=== PATIENT | male | born 1960 | race Caucasian/White ===

== ENCOUNTER 2019-03-25 00:02 | Emergency (ER) | payer SELFPAY ==
[~2019-03-25] VITALS: Ht 172.7 cm; Wt 81.6 kg
[2019-03-25 00:02] VITALS: BP 101/55
--- NOTE | 2019-03-25 00:02 | NUR ---
PT JUANITO BLS. TAKEN TO BED 2
--- NOTE | 2019-03-25 00:02 | NUR ---
TO BED #01 BROUGHT IN BY AMBULANCE FOR ETOH, PATIENT DOESNT ANSWER , IGNORING STAFF.
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
[2019-03-25] MEDS ORDERED: NACL 0.9% 1,000 ML IV ONE (00:50)
[2019-03-25 02:11] LABS: BARBITURATE, URINE NEG. ng/ml (NEG <=200); BENZODIAZEPINE, URINE POS. ng/mL (NEG <=200); CANNABINOID, URINE NEG. ng/mL (NEG <=50); COCAINE, URINE NEG. ng/mL (NEG <=300); OPIATE, URINE NEG. ng/mL (NEG <=2000); PHENCYCLIDINE SCREEN,URINE NEG. ng/mL (NEG <=25)
[2019-03-25] MEDS ORDERED: METO50TA20 PO (05:10)
[2019-03-25] MEDS ORDERED: SLIDE SUBQ (05:13)
[2019-03-25 05:15] VITALS: BP 102/59
--- NOTE | 2019-03-25 05:15 | NUR ---
PT DISCHARGED WITHOUT PAPERWORK. D/C INSTRUCTIONS EXPLAINED. PT VERBALIZED UNDERSTANDING. TOLD PT TO FOLLOW UP WITH PCP. PT AT STABLE CONDITION. ABLE TO AMBULATE WITH SLOW STEADY GAIT. ALL QUESTIONS ANSWERED.
== END 2019-03-25 05:15 | disposition home or self-care (01) ==
LOC: MED 00:02
DX: R53.1 Weakness (principal); F15.90 Other stimulant use, unspecified, uncomplicated; Z79.899 Other long term (current) drug therapy
CPT/HCPCS: 80305; 99283

== ENCOUNTER 2021-06-12 09:46 | Emergency (ER) | payer OTHER, SELFPAY ==
[~2021-06-12] VITALS: Ht 170.2 cm; Wt 82.6 kg
[2021-06-12 09:46] VITALS: BP 130/72
[~2021-06-12 09:46] MED LIST: METO50TA20 PO; SLIDE SUBQ
--- NOTE | 2021-06-12 09:50 | NUR ---
PT BIBA TAKEN TO ER BED 2.
--- NOTE | 2021-06-12 09:59 | NUR ---
60 y/o Male BIBA for c/o alcohol withdrawal. Pt was found sleeping on the floor of an apartment complex parking lot and security called 911 for medical care. Pt is noted with tremors to hands and states he has not had a drink today. BS 90 pre hospital. Pt states 10/10 body pain. PmHx: Alcohol withdrawal, seizures Home meds: None Allergies: PCN
--- NOTE | 2021-06-12 10:52 | NUR ---
DR MADDEN AT BEDSIDE EXAMINING PT
[2021-06-12] MEDS ORDERED: HYDROXYZINE HYDROCHLORIDE 10 MG TAB PO ONE (11:00)
[2021-06-12] MEDS ORDERED: FOLIC ACID 1 MG TAB PO ONE (11:20)
[2021-06-12] MEDS ORDERED: MAGNESIUM OXIDE 400 MG TAB PO ONE (11:20)
[2021-06-12] MEDS ORDERED: MULTIVITAMIN 1 TAB PO STA (11:20)
[2021-06-12 12:17] LABS: BASOPHILS % (AUTO) 0.5 % (0.0-2.0); EOSINOPHILS % (AUTO) 0.2 % (0.0-4.0); HEMATOCRIT 24.2 % (36-52); HEMOGLOBIN 8.2 g/dL (12.0-18.0); LYMPHOCYTES # (AUTO) 0.7 K/uL (2.0-11.5); LYMPHOCYTES % (AUTO) 16.3 % (20.5-51.1); MEAN CORPUSCULAR HEMOGLOBIN 34 pg (27-31); MEAN CORPUSCULAR HGB CONC 34 g/dL (33-37); MEAN CORPUSCULAR VOLUME 99.2 fL (80-94); MONOCYTES # (AUTO) 0.3 K/uL (0.8-1.0); MONOCYTES % (AUTO) 8.1 % (1.7-9.3); NEUTROPHILS # (AUTO) 3.1 K/uL (1.8-7.7); NEUTROPHILS % (AUTO) 74.9 % (42.2-75.2); PLATELET COUNT (AUTO) 62 K/uL (140-450); RED BLOOD CELL COUNT(AUTO) 2.44 MIL/uL (4.20-6.10); RED CELL DISTRIBUTION WIDTH 15.5 % (11.6-13.7); WHITE BLOOD COUNT (AUTO) 4.2 K/uL (4.8-10.8)
[2021-06-12 12:57] LABS: ALBUMIN 3.6 g/dL (3.4-5.0); CARBON DIOXIDE 29.5 mmol/L (21-32); CREATININE 0.4 mg/dL (0.6-1.3); POTASSIUM 3.5 mmol/L (3.5-5.1); TOTAL BILIRUBIN 4.2 mg/dL (0.0-1.0)
[2021-06-12 13:18] VITALS: BP 130/72
--- NOTE | 2021-06-12 13:18 | NUR ---
Patient left without d/c paperwork. Patient discharged with v/s stable. Patient alert, oriented and verbalized understanding of instructions. Ambulatory with steady gait. All questions addressed prior to discharge. ID band removed. Patient advised to follow up with PMD. Opportunity to ask questions provided and answered.
== END 2021-06-12 13:18 | disposition home or self-care (01) ==
LOC: MED 09:46
DX: F10.10 Alcohol abuse, uncomplicated (principal); M79.10 Myalgia, unspecified site; Z88.0 Allergy status to penicillin; Z79.899 Other long term (current) drug therapy; Z59.00 Homelessness unspecified
CPT/HCPCS: 36415; 80053; 85025; 99284

== ENCOUNTER 2021-06-12 20:00 | Inpatient (IN) | payer OTHER, SELFPAY ==
[~2021-06-12] VITALS: Ht 172.7 cm; Wt 81.9 kg
[2021-06-12 20:03] VITALS: BP 109/65
--- NOTE | 2021-06-12 20:09 | NUR ---
PT JUANITO STEELS. TAKEN TO BED 4
--- NOTE | 2021-06-12 20:10 | NUR ---
found at 10/18 etoh. claims that pt is going through withdrawals as pt hasnt had the money. pt takes vodka daily. pmh: alcoholism allx: unknown
[2021-06-12] MEDS ORDERED: NACL 0.9% 1,000 ML IV SCH (20:15)
[2021-06-12] MEDS ORDERED: MAG SULF 2000 MG/WATER PREMIX 50 ML IV ONE (20:15)
[2021-06-12] MEDS ORDERED: FOLIC ACID 5 MG/ML SYR IM ONE (20:15)
[2021-06-12] MEDS ORDERED: MULTIVITAMIN-12 10 ML in NACL 0.9% 1,000 ML IV ONE (20:15)
[2021-06-12] MEDS ORDERED: THIAMINE 200 MG/2 ML VIAL IM ONE (20:15)
[2021-06-12] MEDS ORDERED: MULTIVITAMIN-12 10 ML VIAL IV ONE (21:18)
[2021-06-12] MEDS ORDERED: FOLIC ACID 5 MG/ML SYR ONE (21:20)
[2021-06-12] MEDS ORDERED: THIAMINE 200 MG/2 ML VIAL ONE (21:21)
--- NOTE | 2021-06-12 21:35 | NUR ---
Dr. Benton examining patient.
[2021-06-12] MEDS ORDERED: LORazepam 2 MG/ML VIAL IVP ONE (21:40)
[2021-06-12 22:07] LABS: HEMATOCRIT 20.2 % (36-52); MEAN CORPUSCULAR HEMOGLOBIN 34 pg (27-31); MEAN CORPUSCULAR HGB CONC 35 g/dL (33-37); MEAN CORPUSCULAR VOLUME 98.4 fL (80-94); PLATELET COUNT (AUTO) 47 K/uL (140-450); RED BLOOD CELL COUNT(AUTO) 2.05 MIL/uL (4.20-6.10); RED CELL DISTRIBUTION WIDTH 15.3 % (11.6-13.7); WHITE BLOOD COUNT (AUTO) 4.9 K/uL (4.8-10.8)
[2021-06-12 22:21] LABS: ALBUMIN 3.1 g/dL (3.4-5.0); ASPARTATE AMINOTRANSFERASE 130 U/L (15-37); CARBON DIOXIDE 28.8 mmol/L (21-32); CHLORIDE 98 mmol/L (98-107); CREATININE 0.5 mg/dL (0.6-1.3); GFR ARICAN-AMERICAN 217 mL/min (>90); GLUCOSE 85 mg/dL (74-106); LIPASE 116 U/L (73-393); POTASSIUM 3.2 mmol/L (3.5-5.1); SODIUM SERUM 122 mmol/L (136-145); TOTAL BILIRUBIN 4.4 mg/dL (0.0-1.0); UREA NITROGEN, BLOOD 15 mg/dL (7-18)
[2021-06-12 22:30] LABS: ACETAMINOPHEN < 0.5 ug/ml (10-30); ANION GAP < 1.0 (8-16); SALICYLATE < 2.8 mg/dL (2.8-20.0)
--- NOTE | 2021-06-12 22:30 | NUR ---
HAD I LARGE DARK RED COLORED EMESIS. IS SOMEWHAT RESTLESS WITH C/O PAIN.PT PLACED IN GOWN. LARGE AMOUNT DRIED BROWN STOOL NOTED IN PANTS.
[2021-06-12] MEDS ORDERED: OCTREOTIDE ACETATE 1.25 MG in NACL 0.9% 250 ML IV SCH (22:40)
[2021-06-12] MEDS ORDERED: OCTREOTIDE ACETATE 100 MCG/ML VIAL IV SCH (22:40)
[2021-06-12] MEDS ORDERED: ONDANSETRON 4 MG/2 ML VIAL IVP ONE (22:40)
[2021-06-12 22:49] LABS: LYMPHOCYTES % (MANUAL) 10 % (20-46); MONOCYTES % (MANUAL) 6 % (5-12)
[2021-06-12] MEDS ORDERED: cefTRIAXone 1,000 MG VIAL ONE (22:53)
[2021-06-12] MEDS ORDERED: fentaNYL citrate 0.05 MG/ML VIAL IVP ONE (23:00)
[2021-06-12] MEDS ORDERED: OCTREOTIDE ACETATE 1000 MCG/5 ML VIAL ONE (23:03)
[2021-06-12] MEDS ORDERED: PANTOPRAZOLE 80 MG in NACL 0.9% 100 ML IVP SCH (23:10)
[2021-06-12] MEDS ORDERED: PANTOPRAZOLE 40 MG INJ VIAL IVP ONE (23:10)
[2021-06-12] MEDS ORDERED: DEXT 5% / NACL 0.9% 500 ML IV ONE (23:35)
[2021-06-12 23:52] LABS: PROTHROMBIN TIME 15.1 secs (10.8-13.4)
[2021-06-13] VITALS (12 sets, daily range): BP systolic 100–123; BP diastolic 59–73
--- NOTE | 2021-06-13 01:01 | NUR ---
REPORT CALLED TO ESTELITA SEO
--- NOTE | 2021-06-13 01:05 | NUR ---
TO ICU 6 VIA GURNEY, ATTACHED TO CM ACCOMPANIED BY RN AND ERT
--- NOTE | 2021-06-13 01:30 | NUR ---
RECEIVED REPROT VIA TELEPHONE FROM ER COPY TECHNICIAN ESTELITA ARAUJO FOR TRANSFER OF CARE. PT BROUGHT IN TO ED VIA EMS WITH C/C OF ETOH AND SEIZURES. PT WITH MULTIPLE EPISODES OF BLOODY EMESIS. PT COMPLAINT OF BEING "EXTREMELY COLD" WITH A AXILLARY TEMP OF 97.1F. IV TO RT EJ PATENT AND INTACT. TRANSFER TO ICU VIA RNEY. WILL CONTINUE TO MONITOR.
[2021-06-13] MEDS ORDERED: PANTOPRAZOLE 40 MG INJ VIAL ONE (01:49)
[2021-06-13] MEDS ORDERED: LORazepam 2 MG/ML VIAL ONE (01:57)
[2021-06-13] MEDS ORDERED: LORazepam 2 MG/ML VIAL IVP PRN (02:00)
--- NOTE | 2021-06-13 02:15 | NUR ---
ROSARIO FREEMAN AT BEDSIDE TO PERFOM CENTRAL LINE PLACEMENT. PROCEDURE EXPLAINED TO PT AND UNDERSTANDING MET. CONSENT SIGNED. Addendum: 06/13/21 at 0322 by Gaurang Peres RN REPEATED
--- NOTE | 2021-06-13 02:30 | NUR ---
DR CATALAN, ER MD AT BEDSIDE TO INSERT CENTRAL LINE; CONSENT SIGNED BY PT,WITNESSED BY ESTELITA SEO. DR CATALAN ALSO SAID TO CALL POULTRY CLEANER; HE WANTS TO TALK TO MD, FOR INTUBATION, PAGED DR GARCIA; PHARMACEUTICAL ASSISTANT IS DR COSTA,AWAITING CALL BACK
[2021-06-13] MEDS: NACL 0.9% 1,000 ML IV SCH ×4 (02:31→05:03)
[2021-06-13] MEDS ORDERED: OCTREOTIDE ACETATE 1000 MCG/5 ML VIAL ONE (02:36)
--- NOTE | 2021-06-13 02:45 | NUR ---
FIRST UNIT OF PRBC STARTED. PT TOLERATING WELL, NO S/S OF DISTRESS, VSS. WILL CONTINUE TO MONITOR
[2021-06-13] MEDS ORDERED: MIDAZOLAM 5 MG/5 ML VIAL ONE (03:07)
[2021-06-13] MEDS ORDERED: fentaNYL citrate 0.05 MG/ML VIAL ONE (03:07)
--- NOTE | 2021-06-13 03:17 | NUR ---
DR. BROWN AT BEDSIDE TO PERFORM EGD.
--- NOTE | 2021-06-13 03:20 | NUR ---
PHONE CALL FROM DR COSTA, PULMO SHIFT SUPERVISOR FILM PROCESSING.UPDATED ON PTS PRESENT CONDITION.QUESTIONS ANSWERED.TOLD PHYSICIAN THAT ROSARIO RAMSEY MD WANTED TO TALK TO HIM EARLIER IF PT NEEDS TO BE INTUBATED; PER DR COSTA, IF NEEDED, TO INTUBATE PT.
--- NOTE | 2021-06-13 04:15 | NUR ---
FIRST UN IT OF PRBC COMPLETED. PT TOLERATED WELL, WITH NO S/S OF DISTRESS, VSS. WILL CONTINUE TO MONITOR.
--- NOTE | 2021-06-13 04:25 | NUR ---
SECOND UNIT OF PRBC STARTED PER ER MD ORDERS. PT TOLERATING WELL, WITH NO S/S OF DISTRESS, VSS. WILL CONTINUE TO MONITOR.
[2021-06-13] MEDS ORDERED: fentaNYL citrate 0.05 MG/ML VIAL IVP ONE ×2 (04:30→04:35)
[2021-06-13] MEDS ORDERED: MIDAZOLAM 2 MG/2 ML VIAL IVP ONE (04:30)
--- NOTE | 2021-06-13 04:46 | NUR ---
FIRST UNIT OF PACKED RBC STARTED. PT TOLERATING WELL, NO S/S OF DISTRESS, VSS. WILL CONTINUE TO MONITOR. Addendum: 06/13/21 at 2111 by Gaurang Peres RN INCORRECT TIME
[2021-06-13] MEDS ORDERED: MIDAZOLAM 2 MG/2 ML VIAL IVP SCH (05:19)
--- NOTE | 2021-06-13 06:40 | NUR ---
SECOND UNIT OF PRBC COMPLETED. PT TOLERATED WELL, NO S/S OF DISTRESS, VSS. WILL CONTINUE TO MONITOR.
--- NOTE | 2021-06-13 07:26 | NUR ---
REPORT GIVEN AT BEDSIDE TO DAYSHIFT RN FOR CONTINUITY OF CARE
--- NOTE | 2021-06-13 07:27 | NUR ---
RECEIVED BEDSIDE REPORT FROM GABBI RN, PT RESTING, NO DISTRESS NOTED, EASILY AROUSE-ABLE. PT ON 2LPM O2 VIA NC, NO SOB NOTED, SATURATING @ 96%. IV TO RIGHT EJ 18G PATENT INTACT SL, AND RIGHT IJ CENTRAL LINE PATENT INTACT, RUNNING SANDOSTATIN @ 5ML/HR, PROTONIX @10ML/HR AND NS @100 ML/HR PER MD ORDER. MOTA CATH IN PLACE DRAINING TO GRAVITY. INITIAL ASSESSMENT DONE, ALL SAFETY PRECAUTION MET, CALL LIGHT WITHIN REACH, WILL CONTINUE TO MONITOR.
[2021-06-13] MEDS: PANTOPRAZOLE 80 MG in NACL 0.9% 100 ML IVP SCH ×2 (08:10→18:10)
[2021-06-13] MEDS ORDERED: POTASSIUM CHLORIDE 40 MEQ, LIDOCAINE MPF 1% 25 MG in NACL 0.9% 250 ML IV PRN (08:10)
[2021-06-13] MEDS: OCTREOTIDE ACETATE 1.25 MG in NACL 0.9% 250 ML IV SCH (08:10)
[2021-06-13 08:58] LABS: BASOPHILS # (AUTO) 0.2 K/uL (0.00-0.22); BASOPHILS % (AUTO) 3.8 % (0.0-2.0); EOSINOPHILS % (AUTO) 0.1 % (0.0-4.0); LYMPHOCYTES # (AUTO) 0.6 K/uL (2.0-11.5); LYMPHOCYTES % (AUTO) 12.5 % (20.5-51.1); MEAN CORPUSCULAR HEMOGLOBIN 33 pg (27-31); MEAN CORPUSCULAR HGB CONC 34 g/dL (33-37); MEAN CORPUSCULAR VOLUME 96.8 fL (80-94); MONOCYTES # (AUTO) 0.3 K/uL (0.8-1.0); MONOCYTES % (AUTO) 5.9 % (1.7-9.3); NEUTROPHILS # (AUTO) 3.5 K/uL (1.8-7.7); NEUTROPHILS % (AUTO) 77.7 % (42.2-75.2); PLATELET COUNT (AUTO) 45 K/uL (140-450); RED BLOOD CELL COUNT(AUTO) 1.99 MIL/uL (4.20-6.10); RED CELL DISTRIBUTION WIDTH 15.9 % (11.6-13.7); WHITE BLOOD COUNT (AUTO) 4.5 K/uL (4.8-10.8)
[2021-06-13 09:00] LABS: ANION GAP 13.8 (8-16); CARBON DIOXIDE 23.8 mmol/L (21-32); CREATININE 0.5 mg/dL (0.6-1.3); POTASSIUM 3.6 mmol/L (3.5-5.1)
[2021-06-13 09:12] LABS: HEMATOCRIT 19.3 % (36-52); HEMOGLOBIN 6.6 g/dL (12.0-18.0)
[2021-06-13] MEDS: levETIRAcetam 1,000 MG in NACL 0.9% 100 ML IV SCH ×2 (09:42→21:08)
[2021-06-13] MEDS: DEXT 5% /NACL 0.9% 1,000 ML IV SCH ×2 (09:42→17:35)
--- NOTE | 2021-06-13 10:10 | NUR ---
FIRST UNIT OF PLATELET PHERESIS STARTED, PT TOLERATED WELL, RESTING, NO S/S OF DISTRESS. WILL CONTINUE TO MONITOR.
[2021-06-13] MEDS: NYSTATIN POW 100 MU/GM 15 GM BTL TP SCH ×2 (10:27→21:08)
--- NOTE | 2021-06-13 11:18 | NUR ---
PLATELET PHERESIS COMPLETED, PT TOLERATED WELL, WILL CONTINUE TO MONITOR.
--- NOTE | 2021-06-13 11:30 | NUR ---
SECOND UNIT OF PLATELET PHERESIS STARTED, PT TOLERATING WELL, WILL CONTINUE TO MONITOR.
[2021-06-13] MEDS ORDERED: MORPHINE SULFATE 2 MG/ML SYR ONE (12:20)
--- NOTE | 2021-06-13 12:20 | NUR ---
PT C/O ARM AND LEG PAIN, PAGED DR JENSEN, PER DR TO ORDER MORPHINE 1MG IVP Q4H FOR MODERATE PAIN, MEDICATION GIVEN, PT TOLERATED WELL, WILL CONTINUE TO MONITOR.
[2021-06-13] MEDS: MORPHINE SULFATE 2 MG/ML SYR IVP PRN ×3 (12:25→21:00)
[2021-06-13] MEDS: LORazepam 2 MG/ML VIAL IVP PRN (13:05)
--- NOTE | 2021-06-13 13:10 | NUR ---
PLASMA PHERESIS COMPLETED, PT TOLERATED WELL, NO DISTRESS NOTED, WILL CONTINUE TO MONITOR.
--- NOTE | 2021-06-13 13:55 | NUR ---
1 UNIT PRBC TRANSFUSION STARTED, PT TOLERATED WELL, NO DISTRESS NOTED, WILL CONTINUE TO MONITOR.
--- NOTE | 2021-06-13 16:15 | NUR ---
BLOOD TRANSFUSION COMPLETED, PT TOLERATED WELL, WILL CONTINUE TO MONITOR.
[2021-06-13] MEDS ORDERED: MULTIVITAMIN-12 10 ML, THIAMINE 100 MG, FOLIC ACID 1 MG, MAGNESIUM SULFATE 50% 2,000 MG... IV SCH ×5 (16:30)
[2021-06-13] MEDS ORDERED: ONDANSETRON 4 MG/2 ML VIAL ONE (17:10)
--- NOTE | 2021-06-13 17:10 | NUR ---
NOTIFIED DR JENSEN REGARDING BANANA BAG ORDER, PER FOR RATE PER PHARMACY AND ALSO IT IS OK TO START TOMORROW. ALSO NOTIFIED PT IS THROWING UP, THERE IS NO PRN ORDERED, PER TO ORDER ZOFRAN IVP 4MG Q4H PRN NAUSEA/VOMITING. WILL CONTINUE WITH ORDERS.
[2021-06-13] MEDS: ONDANSETRON 4 MG/2 ML VIAL IVP PRN ×2 (17:15→21:00)
[2021-06-13 18:22] LABS: BASOPHILS # (AUTO) 0.1 K/uL (0.00-0.22); BASOPHILS % (AUTO) 2.7 % (0.0-2.0); EOSINOPHILS % (AUTO) 0.4 % (0.0-4.0); HEMATOCRIT 21.1 % (36-52); HEMOGLOBIN 7.2 g/dL (12.0-18.0); LYMPHOCYTES # (AUTO) 0.3 K/uL (2.0-11.5); LYMPHOCYTES % (AUTO) 6.1 % (20.5-51.1); MEAN CORPUSCULAR HEMOGLOBIN 30 pg (27-31); MEAN CORPUSCULAR HGB CONC 34 g/dL (33-37); MEAN CORPUSCULAR VOLUME 89.4 fL (80-94); MONOCYTES # (AUTO) 0.2 K/uL (0.8-1.0); MONOCYTES % (AUTO) 4.5 % (1.7-9.3); NEUTROPHILS # (AUTO) 4.3 K/uL (1.8-7.7); NEUTROPHILS % (AUTO) 86.3 % (42.2-75.2); PLATELET COUNT (AUTO) 51 K/uL (140-450); RED BLOOD CELL COUNT(AUTO) 2.36 MIL/uL (4.20-6.10); RED CELL DISTRIBUTION WIDTH 22.5 % (11.6-13.7)
--- NOTE | 2021-06-13 19:11 | NUR ---
ENDORSED PT TO RETORT FURNACE OPERATOR NURSE FOR CONTINUOUS OF CARE.
--- NOTE | 2021-06-13 19:25 | NUR ---
RECEIVED REPORT AT BEDSIDE FROM CLOTHER IN RN FOR CONTINUITY OF CARE. PT RESTING AND LAYING IN BED WITH EYES CLOSED, NO DISTRESS NOTED, ABLE TO AROUSE BY VOICE/NAME . PT ON 2L O2 VIA NC, NO SOB NOTED, WITH SATURATION @ 98%. RIJ CENTRAL LINE IN PLACE, PATENT AND INTACT, RUNNING SANDOSTATIN @ 5ML/HR, PROTONIX @10ML/HR AND D5NS @100 ML/HR. MOTA CATH IN PLACE DRAINING TO GRAVITY. INITIAL ASSESSMENT COMPLETED. SAFETY MEASURES IN PLACE. CALL LIGHT WITHIN REACH AND BED IN LOWEST POSITION. WILL CONTINUE TO MONITOR.
[2021-06-13 20:35] LABS: BARBITURATE, URINE NEGATIVE ng/ml (NEG <=200); BENZODIAZEPINE, URINE POSITIVE ng/mL (NEG <=200); CANNABINOID, URINE NEGATIVE ng/mL (NEG <=50); COCAINE, URINE NEGATIVE ng/mL (NEG <=300); OPIATE, URINE POSITIVE ng/mL (NEG <=2000); PHENCYCLIDINE SCREEN,URINE NEGATIVE ng/mL (NEG <=25)
[2021-06-13] MEDS ORDERED: levETIRAcetam 100 MG/ML VIAL IV ONE (20:46)
--- NOTE | 2021-06-13 21:08 | NUR ---
SCHEDULED MEDS ADMINISTERED ORDERED. NADR NOTED. VSS. PT COMPLAINT OF PAIN CHRONIC 10/10 THROUGHOUT BODY WELL SEVERE NAUSEA. PRN MORPHINE AND ZOFRAN ADMINISTERED ORDERED. NADR NOTED. PT TOLERATED WELL. WILL CONTINUE TO MONITOR.
[2021-06-14] VITALS (12 sets, daily range): BP systolic 106–124; BP diastolic 57–75
[2021-06-14] MEDS ORDERED: PANTOPRAZOLE 40 MG INJ VIAL ONE (00:42)
--- NOTE | 2021-06-14 01:00 | NUR ---
PT COMPLAINT OF NAUSEA AND 10/10 PAIN. PRN MORPHINE AND ZOFRAN ADMINISTERED ORDERED. TOLERATED WELL. NADR NOTED. WILL CONTINUE TO MONITOR.
[2021-06-14] MEDS: ONDANSETRON 4 MG/2 ML VIAL IVP PRN ×3 (01:03→08:53)
[2021-06-14] MEDS: MORPHINE SULFATE 2 MG/ML SYR IVP PRN ×4 (01:03→16:43)
--- NOTE | 2021-06-14 02:00 | NUR ---
PT SWITCHED TO ROOM AIR. TOLERATING WELL WITH 02 SATURATION OF 93%. WILL CONTINUE TO MONITOR.
[2021-06-14] MEDS: DEXT 5% /NACL 0.9% 1,000 ML IV SCH ×3 (03:17→22:57)
[2021-06-14 05:26] LABS: BASOPHILS % (AUTO) 0.4 % (0.0-2.0); EOSINOPHILS % (AUTO) 0.9 % (0.0-4.0); LYMPHOCYTES # (AUTO) 0.6 K/uL (2.0-11.5); LYMPHOCYTES % (AUTO) 18.2 % (20.5-51.1); MEAN CORPUSCULAR HEMOGLOBIN 31 pg (27-31); MEAN CORPUSCULAR HGB CONC 34 g/dL (33-37); MEAN CORPUSCULAR VOLUME 90.6 fL (80-94); MONOCYTES # (AUTO) 0.3 K/uL (0.8-1.0); MONOCYTES % (AUTO) 8.4 % (1.7-9.3); NEUTROPHILS # (AUTO) 2.6 K/uL (1.8-7.7); NEUTROPHILS % (AUTO) 72.1 % (42.2-75.2); PLATELET COUNT (AUTO) 41 K/uL (140-450); RED BLOOD CELL COUNT(AUTO) 2.16 MIL/uL (4.20-6.10); WHITE BLOOD COUNT (AUTO) 3.5 K/uL (4.8-10.8)
[2021-06-14 05:36] LABS: ANION GAP 6.5 (8-16); CARBON DIOXIDE 27.5 mmol/L (21-32); CREATININE 0.6 mg/dL (0.6-1.3)
[2021-06-14 06:03] LABS: HEMATOCRIT 19.5 % (36-52); HEMOGLOBIN 6.6 g/dL (12.0-18.0)
--- NOTE | 2021-06-14 07:14 | NUR ---
REPORT GIVEN AT BEDSIDE TO DAYSHIFT RN FOR CONTINUITY OF CARE
--- NOTE | 2021-06-14 07:15 | NUR ---
RECEIVED BEDSIDE REPORT FROM OFFSET SECOND PRESS OPERATOR NURSE JANNIE SEO RESTING, AWAKE ALERT ABLE TO LET NEEDS KNOWN. LEFT IJ TRIPLE LUMEN CATH CENTRAL LINE, PATENT INTACT, INFUSING SANDOSTATIN @ 5ML/HR, PROTONIX @ 10ML/HR, D5NS @ 100ML/HR. MOTA CATH IN PLACE DRAINING TO GRAVITY. INITIAL ASSESSMENT DONE, ALL SAFETY PRECAUTION MET, CALL LIGHT WITHIN REACH, WILL CONTINUE TO MONITOR.
[2021-06-14] MEDS ORDERED: FOLIC ACID 5 MG/ML SYR IV ONE (07:30)
[2021-06-14] MEDS ORDERED: MULTIVITAMIN-12 10 ML, THIAMINE 100 MG, FOLIC ACID 1 MG, MAGNESIUM SULFATE 50% 2,000 MG... IV SCH ×5 (07:30)
[2021-06-14] MEDS ORDERED: MAG SULF 2000 MG/WATER PREMIX 50 ML IV SCH (07:40)
[2021-06-14] MEDS ORDERED: THIAMINE 200 MG/2 ML VIAL IV SCH (07:45)
[2021-06-14] MEDS: OCTREOTIDE ACETATE 1.25 MG in NACL 0.9% 250 ML IV SCH ×2 (08:10→18:15)
[2021-06-14] MEDS ORDERED: METOCLOPRAMIDE 10 MG/2 ML INJ VIAL IVP PRN (08:30)
[2021-06-14] MEDS: MULTIVITAMIN-12 10 ML, FOLIC ACID 1 MG in DEXT 5% / LACT RING 1,000 ML IV SCH ×2 (08:45→12:33)
[2021-06-14] MEDS ORDERED: THIAMINE 200 MG/2 ML VIAL IM SCH (09:00)
[2021-06-14] MEDS: NYSTATIN POW 100 MU/GM 15 GM BTL TP SCH ×2 (09:17→20:17)
[2021-06-14] MEDS: levETIRAcetam 1,000 MG in NACL 0.9% 100 ML IV SCH (09:21)
[2021-06-14 09:41] LABS: ALBUMIN 2.7 g/dL (3.4-5.0); ANION GAP 7.7 (8-16); CARBON DIOXIDE 27.4 mmol/L (21-32); CREATININE 0.6 mg/dL (0.6-1.3); POTASSIUM 3.1 mmol/L (3.5-5.1); TOTAL BILIRUBIN 4.2 mg/dL (0.0-1.0)
[2021-06-14 10:02] LABS: PROTHROMBIN TIME 14.2 secs (10.8-13.4)
--- NOTE | 2021-06-14 10:26 | NUR ---
PATIENT HAS BEEN SCREENED AND CATEGORIZED HIGH NUTRITION RISK. PATIENT WILL BE SEEN WITHIN 1-2 DAYS OF ADMISSION. /10/29 RECEIVED REFERRAL FOR NAUSEA AND VOMITING OVER THREE DAYS [address]
--- NOTE | 2021-06-14 10:40 | NUR ---
UNIT OF RBC STARTED AT THIS TIME. VSS AND NO SIGNS OF DISTRESS NOTED. WILL CONTINUE TO MONITOR
--- NOTE | 2021-06-14 11:03 | NUR ---
DR. ESQUEDA BEDSIDE EVALUATING PT
[2021-06-14] MEDS: PANTOPRAZOLE 80 MG in NACL 0.9% 100 ML IVP SCH ×3 (11:12→23:25)
--- NOTE | 2021-06-14 12:09 | NUR ---
DC PLANNIN YRS OLD MALE HOMELESS PATIENT WAS ADMITTED FROM ER WITH A DX OF UPPER GI BLEED. PATIENT HAS A HX OF ALCOHOL ABUSE AND SEIZURE DISORDER. H/H ON ADMISSION 6.6/19.3 TRANSFUSED 2 UNIT OF PRBC. CXR SHOWED MILD RIGHT BASILAR DISEASE QUESTION ATELECTASIS/INFILTRATE. RAPID COVID TEST NEGATIVE. PATIENT UNDERWENT TO EMERGENCY EGD FOR FRESH BLOOD IN THE STOMACH WITH MILD PORTAL GASTROPATHY BY DR SOW. STARTED ON SANDOSTATIN AND PROTONIX DRIP .CONSULTED WITH PULMO. CM TO FOLLOW Addendum: 06/16/21 at 1517 by April Barraza RN DC PLANNING: GEOVANNI ALEXANDRE FROM ADMITTING CHECKED WITH PT'S DAUGHTER AND PT'S REAL NAME IS JENELLE ELMORE, AND HAS BEEN HOMELESS FOR THE LAST 2 YRS, AND WAS LOOKING FOR HIM. PT HAS [facility], NOTIFIED DR WHITE [place] [facility] [place] CASIANO. NOTIFIED [facility] SPOKE WITH LORY . PATIENT HAS ORDER TO GO TO SNF. FAXED THE ORDER TO [facility] AND [facility]. CALLED PT'S DAUGHTER WAI ELMORE [phone] PER WAI HER DAD HAS A DRINKING PROBLEM HOWEVER WILLING TO HELP HIM ONCE HE IS STABLE. CM TO FOLLOW Addendum: 06/17/21 at 1241 by April Barraza RN DC PLANNING: SPOKE WITH PATIENT AND HIS DAUGHTER WAI BOTH AGREED WITH HIM GOING TO [facility] ONCE HE GETS BETTER WAI WILL HELP HIM WITH LIVING ARRANGEMENT. [facility] IS ACCEPTING PATIENT CAN GO TO ROOM 8B .# TO GIVE REPORT [phone] RECEIVED AUTH # FROM [facility] [id number] FOR [facility] AND [id number] FOR TRANSPORT ARRANGED TRANSPORT WITH [facility] TRANSPORT HEALTH PHYSICIST TIME 4 PM NOTIFIED LEELA SIMS CM TO FOLLOW
--- NOTE | 2021-06-14 12:57 | NUR ---
06/14/21 RD INITIAL ASSESSMENT COMPLETED PLEASE REFER TO NUTRITION ASSESSMENT UNDER CARE ACTIVITY FOR ESTIMATED NUTRITIONAL NEEDS. 1. WHEN/IF MEDICALLY APPROPRIATE, ADVANCE TO CLEAR LIQUID DIET AND THEN TO REGULAR TOLERATED 2. CONTINUE WITH MULTIVITAMINS/B VITAMIN SUPPLEMENTS 3. RD TO FOLLOW-UP 2-3 DAYS, HIGH RISK YENNI TATUM RD
[2021-06-14] MEDS: chlordiazePOXIDE 25 MG CAP PO SCH ×2 (13:08→16:42)
--- NOTE | 2021-06-14 19:24 | NUR ---
REPORT GIVEN TO BRICK TENDER NURSE FOR TRANSFER OF CARE
--- NOTE | 2021-06-14 19:30 | NUR ---
ASSUMED CARE OF PT.INITIAL ASSESSMENT COMPLETED.PT AWAKE ALERT,ORIENTED X2-3.SR ON MONITOR.ON ROOM AIR.NO SOB NOTED.WITH TLC TO LT IJ INTACT.GOOD BLOOD RETURN TO ALL 3 PORTS INFUSING ORDERED IVF, SANDOSTATIN DRIP AT 5ML/HR AND PROTONIX DRIP AT 10ML/HR.MAINTAINED ON NPO EXCEPT MEDS.W/MOTA CATHETER TO BSD DRAINING ADEQUATE AMT OF YELLOW URINE.EXCORIATION TO GROIN/PERINEAL AREA STILL NOTED; PT W/NYSTATIN POWDER ORDERED AND IN PLACE.PT ABLE TO MOVE ALL EXTREMITIES.NO PAIN NOTED.SAFETY PRECAUTION IN PLACE.CALL LIGHT WITHIN REACH
--- NOTE | 2021-06-14 19:45 | NUR ---
W/ORDER TO TRANSFUSE 2 UNITS PLATELET PHERESIS,IST UNIT VERIFIED W/MARIO RN STARTED.WILL CONTINUE TO CLOSELY MONITOR PT
--- NOTE | 2021-06-14 20:30 | NUR ---
WITH ONGOING PLATELET TRANSFUSION, NO UNTOWARD REACTIONS NOTED.
--- NOTE | 2021-06-14 20:55 | NUR ---
1ST UNIT PLATELET TRANSFUSION COMPLETED.NO ADVERSE REACTIONS NOTED.PT ALERT AND ORIENTED.NO SOB NOTED
--- NOTE | 2021-06-14 21:00 | NUR ---
2ND UNIT OF PLATELET VERIFIED WITH RN MARIO.PT AWAKE.NO SOB NOTED.NO PAIN NOTED.STARTED TRANSFUSING THE 2ND UNIT PLATELET PHERESIS
--- NOTE | 2021-06-14 22:00 | NUR ---
2ND UNIT PLATELET TRANSFUSION COMPLETED.NO UNTOWARD REACTIONS NOTED.
[2021-06-15] VITALS (10 sets, daily range): BP systolic 97–147; BP diastolic 34–84
--- NOTE | 2021-06-15 | NUR ---
PT APPEARS CONFUSED; TRYING TO GET OUT OF BED,REMOVING LINES; REORIENTED
[2021-06-15] MEDS: MORPHINE SULFATE 2 MG/ML SYR IVP PRN ×2 (00:11→09:00)
[2021-06-15] MEDS: ONDANSETRON 4 MG/2 ML VIAL IVP PRN ×2 (01:26→09:00)
--- NOTE | 2021-06-15 01:26 | NUR ---
PT C/O NAUSEA; ZOFRAN ADMINISTERED ORDERED
--- NOTE | 2021-06-15 04:00 | NUR ---
PT ASLEEP; CONFUSED WHEN AWAKE TRYING TO REMOVE LINES; REORIENTED.NO PAIN NOTED.PT ABLE TO REPOSITION SELF
[2021-06-15 05:23] LABS: BASOPHILS % (AUTO) 0.6 % (0.0-2.0); EOSINOPHILS # (AUTO) 0.1 K/uL (0-0.4); EOSINOPHILS % (AUTO) 2.8 % (0.0-4.0); HEMATOCRIT 22.8 % (36-52); HEMOGLOBIN 7.7 g/dL (12.0-18.0); LYMPHOCYTES # (AUTO) 0.7 K/uL (2.0-11.5); LYMPHOCYTES % (AUTO) 21.7 % (20.5-51.1); MEAN CORPUSCULAR HEMOGLOBIN 31 pg (27-31); MEAN CORPUSCULAR HGB CONC 34 g/dL (33-37); MEAN CORPUSCULAR VOLUME 91.1 fL (80-94); MONOCYTES # (AUTO) 0.2 K/uL (0.8-1.0); MONOCYTES % (AUTO) 8.1 % (1.7-9.3); NEUTROPHILS % (AUTO) 66.8 % (42.2-75.2); PLATELET COUNT (AUTO) 50 K/uL (140-450); RED BLOOD CELL COUNT(AUTO) 2.51 MIL/uL (4.20-6.10); RED CELL DISTRIBUTION WIDTH 22.6 % (11.6-13.7)
[2021-06-15 05:44] LABS: ANION GAP 8.4 (8-16); CARBON DIOXIDE 26.8 mmol/L (21-32); CREATININE 0.5 mg/dL (0.6-1.3); POTASSIUM 3.2 mmol/L (3.5-5.1)
--- NOTE | 2021-06-15 06:17 | NUR ---
PT DOZING ON AND OFF; STILL WITH PERIODS OF CONFUSION WHEN AWAKE; NAUSEA NOTED THIS SHIFT, NO VOMITING.TLC TO LT IJ INTACT.MOTA CATHETER INTACT
--- NOTE | 2021-06-15 07:10 | NUR ---
RECEIVED REPORT FROM WORK FROM HOME NURSE FOR CONTINUITY OF CARE. PT IS RESTING IN BED IN NO SIGN OF DISTRESS OR PAIN. PT IS ON ROOM AIR. PT HAS A LIJ CENTRAL LINE 3 LUMEN RUNNING SANDOSTATIN AT 5 ML/H, PROTONIX AT 10 ML/H AND D5NS AT 100 ML/H. PT HAS A MOTA CATH IN PLACE AND WITH YELLOW URINE. PT IS NPO EXCEPT MEDICATIONS. PT IS SR ON MONITOR. SKIN IS INTACT WITH SOME IRRITATION ON GROIN AREA. ALL SAFETY PRECAUTIONS ARE IN PLACE AND WILL CONTINUE TO MONITOR.
[2021-06-15] MEDS ORDERED: KCL 20 MEQ/WATER INJ PREMIX 200 ML IV PRN (07:55)
--- NOTE | 2021-06-15 09:00 | NUR ---
PRN PAIN MEDICATION WAS ADMINISTERED AFTER EVALUATION. WILL REASSESS PAIN.
[2021-06-15] MEDS: chlordiazePOXIDE 25 MG CAP PO SCH ×3 (09:22→17:32)
[2021-06-15] MEDS: NYSTATIN POW 100 MU/GM 15 GM BTL TP SCH ×2 (09:23→21:07)
--- NOTE | 2021-06-15 10:00 | NUR ---
PT IS NOT COMPLAIN OF PAIN. WILL CONTINUE TO MONITOR.
[2021-06-15] MEDS: DEXT 5% /NACL 0.9% 1,000 ML IV SCH ×2 (10:09→19:35)
[2021-06-15] MEDS: PANTOPRAZOLE 80 MG in NACL 0.9% 100 ML IVP SCH (10:44)
--- NOTE | 2021-06-15 12:00 | NUR ---
PT IS RESTING AND IN NO SIGN OF DISTRESS.
--- NOTE | 2021-06-15 13:00 | NUR ---
MEDICATION ADMINISTERED AND PT TOLERATED WELL. WILL CONTINUE TO MONITOR.
--- NOTE | 2021-06-15 14:20 | NUR ---
PER DR. SOW ORDERS VIA PHONE, PT IS TO START REGULAR DIET, DC SANDOSTATIN, DC PROTONIC IV, START PROTONIX PO AND TRANSFER PT TO TELE.
--- NOTE | 2021-06-15 14:43 | NUR ---
PER ELIZABETH () AND FLOR (BROTHER), ONLY DETAIL INFORMATION IS TO BE GIVEN TO THEM AND EVERYONE ELSE JUST BASIC PT STATUS. Addendum: 06/15/21 at 1445 by Isidro Lucas RN RN WRONG PT.
[2021-06-15] MEDS: LORazepam 2 MG/ML VIAL IVP PRN ×2 (17:20→21:19)
--- NOTE | 2021-06-15 19:25 | NUR ---
ENDORSED CARE TO MANAGER CHANNEL NURSE FOR CONTINUITY OF CARE.
--- NOTE | 2021-06-15 21:19 | NUR ---
PT STATED FEELING ANXIOUS AND NERVOUS. PT WAS REORIENTED TO PLACE. PRN ATIVAN ADMINISTERED ORDERED. NADR NOTED. PT NOW LAYING IN BED WITH EYES CLOSED. VSS. WILL CONTINUE TO MONITOR.
[2021-06-16] VITALS: BP 139/98
[2021-06-16] MEDS: MORPHINE SULFATE 2 MG/ML SYR IVP PRN (00:17)
--- NOTE | 2021-06-16 00:17 | NUR ---
PATIENT COMPLAINS OF FULL BODY PAIN ALL OVER 7/10. PRN MORPHINE PROVIDED.
[2021-06-16] MEDS: DEXT 5% /NACL 0.9% 1,000 ML IV SCH ×3 (01:38→21:02)
[2021-06-16] MEDS: LORazepam 2 MG/ML VIAL IVP PRN ×3 (01:38→21:01)
[2021-06-16 04:00] VITALS: BP 121/75
[2021-06-16 05:49] LABS: ANION GAP 8.6 (8-16); CARBON DIOXIDE 26.6 mmol/L (21-32); CREATININE 0.4 mg/dL (0.6-1.3); POTASSIUM 3.2 mmol/L (3.5-5.1)
--- NOTE | 2021-06-16 06:33 | NUR ---
PRN ATIVAN PROVIDED DUE TO PATIENT COMPLAINTS OF ANXIETY. PERICARE PROVIDED AFTER PATIENT HAD LARGE BLACK AND TARRY BOWEL MOVEMENT. EMPTIED 1200 OF NIKOLAS URINE FROM MOTA CATHETER. PATIENT REPOSITIONED.
--- NOTE | 2021-06-16 07:35 | NUR ---
RECEIVED REPORT FROM SIGNAL TIMER NURSE. PATIENT LYING DOWN IN BED SLEEPING, AROUSABLE BY VOICE. NO DISTRESS NOTED. DENIES ANY PAIN. AAOX2, SKIN INTACT. LEFT IJ INTACT, PATENT, AND INFUSING IVF PER MD ORDERS. MOTA CATH IN PLACE, REVIEWED PLAN OF CARE WITH PATIENT. VERBALIZED UNDERSTANDING. SAFETY MEASURES IN PLACE, CALL LIGHT WITHIN REACH. WILL CONTINUE TO MONITOR.
[2021-06-16 08:00] VITALS: BP 112/61
[2021-06-16] MEDS: chlordiazePOXIDE 25 MG CAP PO SCH ×3 (08:49→17:17)
[2021-06-16] MEDS: PANTOPRAZOLE 40 MG TABEC PO SCH (08:49)
[2021-06-16] MEDS: NYSTATIN POW 100 MU/GM 15 GM BTL TP SCH ×2 (08:49→21:00)
[2021-06-16 08:50] LABS: EOSINOPHILS # (AUTO) 0.1 K/uL (0-0.4); LYMPHOCYTES # (AUTO) 0.5 K/uL (2.0-11.5); MEAN CORPUSCULAR VOLUME 92.4 fL (80-94); WHITE BLOOD COUNT (AUTO) 2.6 K/uL (4.8-10.8)
--- NOTE | 2021-06-16 08:50 | NUR ---
SCHEDULED MEDICATIONS DUE GIVEN. WILL CONTINUE TO MONITOR.
[2021-06-16 08:54] LABS: BASOPHILS % (AUTO) 1.7 % (0.0-2.0); EOSINOPHILS % (AUTO) 2.8 % (0.0-4.0); HEMATOCRIT 23.9 % (36-52); HEMOGLOBIN 7.9 g/dL (12.0-18.0); LYMPHOCYTES % (AUTO) 18.2 % (20.5-51.1); MEAN CORPUSCULAR HEMOGLOBIN 30 pg (27-31); MEAN CORPUSCULAR HGB CONC 33 g/dL (33-37); MONOCYTES # (AUTO) 0.2 K/uL (0.8-1.0); MONOCYTES % (AUTO) 9.7 % (1.7-9.3); NEUTROPHILS # (AUTO) 1.7 K/uL (1.8-7.7); NEUTROPHILS % (AUTO) 67.6 % (42.2-75.2); PLATELET COUNT (AUTO) 45 K/uL (140-450); RED BLOOD CELL COUNT(AUTO) 2.59 MIL/uL (4.20-6.10); RED CELL DISTRIBUTION WIDTH 22.5 % (11.6-13.7)
--- NOTE | 2021-06-16 10:02 | NUR ---
PT. WITH LOW TRACY SCALE AT MODERATE TO HIGH RISK, CONTINUE TO FOLLOW PRESSURE INJURY PREVENTION INTERVENTIONS. -POSITIONING: TURN AND REPOSITION PATIENT Q 2H OR SOONER USE PILLOWS TO KEEP BONY PROMINENCES FROM DIRECT CONTACT WITH SURFACES USE REPOSITIONING WEDGES TO PROVIDE 30-DEGREE ANGLE FOR SIDE LYING POSITIONS OFFLOADING OR FOAM DRESSING TO ALL TUBING TO PREVENT MEDICAL DEVICES RELATED PRESSURE INJURY -RE-EVALUATING AND MANAGING INCONTINENCE MONITOR SKIN CONDITION DURING POSITION CHANGE DO NOT MASSAGE REDNESS, BONY PROMINENCES, DO NOT USE DONUT-TYPE DEVICES FREQUENT SYDNEY-CARE AND PROVIDE BARRIER CREAMS PRN IF SOILING MOISTURE CONTROL BY OFFER BED DUENAS/URINAL /ABSORBENT PAD TO WICK AND HOLD MOISTURE. MAY OBTAIN ORDER FOR FLEX SEAL, RECTAL BAG OR MOTA CATHETER PER PHYSICIAN ORDER UNLESS OTHERWISE CONTRAINDICATED KEEP SKIN DRY AND PROTECT FROM FRICTION -MANAGE FRICTION/SHEAR/MOBILITY KEEP HOB AT THE LOWEST LEVEL OF ELEVATION NO MORE THAN 30 DEGREE UNLESS OTHERWISE CONTRAINDICATED USE LIFT SHEET OR TRANSFER DEVICE TO MOVE PATIENT AND PREVENT LATERAL SHEER. CONSIDER TRAPEZE IF APPROPRIATE PROTECT HEELS, ELBOWS BONY PROMINENCES WITH SKIN BERRIES OR FOAM DRESSING IF EXPOSED TO FRICTION OFFLOAD BILATERAL HEELS BY PLACING PILLOWS UNDER CALVES AT ALL TIMES, UNLESS OTHERWISE CONTRAINDICATED -PRESSURE REDISTRIBUTION SURFACE THERAPY -NUTRITION: PLEASE FOLLOW RD RECOMMENDATIONS AND OFFER NUTRITION SUPPLEMENTS IF ORDERED. PLEASE CONTACT WOUND CARE NURSE FOR ANY QUESTION AND CHANGE OF WOUND CONDITION.
[2021-06-16] MEDS ORDERED: PANT40EC56 PO (11:57)
[2021-06-16] MEDS ORDERED: LIB25 PO (11:57)
[2021-06-16] MEDS ORDERED: LEVE1000 PO (11:59)
[2021-06-16 12:00] VITALS: BP 114/68
--- NOTE | 2021-06-16 13:24 | NUR ---
SCHEDULED MEDICATIONS DUE GIVEN. WILL CONTINUE TO MONITOR.
[2021-06-16 16:00] VITALS: BP 114/63
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
--- NOTE | 2021-06-16 17:17 | NUR ---
SCHEDULED MEDICATIONS DUE GIVEN. WILL CONTINUE TO MONITOR.
--- NOTE | 2021-06-16 19:30 | NUR ---
GAVE REPORT TO PURCHASER AUTOMOTIVE PARTS NURSE FOR CONTINUITY OF CARE. PATIENT IN STABLE CONDITION.
[2021-06-16 20:00] VITALS: BP 122/78
--- NOTE | 2021-06-16 20:00 | NUR ---
notified Dr. fischer of patients ammonia level of 102. will give lactulose as per JUN . continue to monitor pt.
[2021-06-16] MEDS: LACTULOSE 20 GM/30 ML UDC PO SCH (21:01)
[2021-06-17] VITALS: BP 128/78
[2021-06-17 04:00] VITALS: BP 119/78
--- NOTE | 2021-06-17 04:23 | NUR ---
patient have 3 Bowel movements tonight..
[2021-06-17 07:12] LABS: ANION GAP 10.9 (8-16); CARBON DIOXIDE 24.2 mmol/L (21-32); CREATININE 0.4 mg/dL (0.6-1.3); POTASSIUM 3.1 mmol/L (3.5-5.1)
--- NOTE | 2021-06-17 07:20 | NUR ---
RECEIVED REPORT FROM ELECTRIC METER TECHNICIAN NURSE FOR CONTINUITY OF CARE. PT ASLEEP IN BED. BREATHING SYMMETRICAL ON ROOM AIR. FLACC O. PT WITH LARGE ROUND ABDOMEN. WITH LIJ 3 LUMEN CATHETER WITH D5NS AT 100CC/HR. BED ALARM ACTIVATED. CALL LIGHT WITHIN REACH. ALL SAFETY MEASURES IN PLACE.
[2021-06-17 07:47] LABS: BASOPHILS % (AUTO) 0.6 % (0.0-2.0); EOSINOPHILS # (AUTO) 0.1 K/uL (0-0.4); EOSINOPHILS % (AUTO) 2.5 % (0.0-4.0); HEMATOCRIT 24.9 % (36-52); LYMPHOCYTES # (AUTO) 0.5 K/uL (2.0-11.5); LYMPHOCYTES % (AUTO) 19.7 % (20.5-51.1); MEAN CORPUSCULAR HEMOGLOBIN 30 pg (27-31); MEAN CORPUSCULAR HGB CONC 32 g/dL (33-37); MEAN CORPUSCULAR VOLUME 93.3 fL (80-94); MONOCYTES # (AUTO) 0.4 K/uL (0.8-1.0); MONOCYTES % (AUTO) 16.8 % (1.7-9.3); NEUTROPHILS # (AUTO) 1.5 K/uL (1.8-7.7); NEUTROPHILS % (AUTO) 60.4 % (42.2-75.2); RED BLOOD CELL COUNT(AUTO) 2.67 MIL/uL (4.20-6.10); WHITE BLOOD COUNT (AUTO) 2.5 K/uL (4.8-10.8)
[2021-06-17 08:00] VITALS: BP 112/78
[2021-06-17] MEDS: LACTULOSE 20 GM/30 ML UDC PO SCH (08:21)
[2021-06-17] MEDS: PANTOPRAZOLE 40 MG TABEC PO SCH (08:22)
[2021-06-17] MEDS: chlordiazePOXIDE 25 MG CAP PO SCH ×2 (08:22→13:17)
[2021-06-17] MEDS: NYSTATIN POW 100 MU/GM 15 GM BTL TP SCH (09:00)
--- NOTE | 2021-06-17 09:39 | NUR ---
PT'S POTASSIUM IS 3.1 OBTAINED ORDER FOR KRIDER FROM DR CASIANO, ALSO PT FOR DISCHARGE OBTAINED ORDER TO DC LIJ CENTRAL LINE.
[2021-06-17] MEDS: KCL 20 MEQ/WATER INJ PREMIX 200 ML IV SCH ×2 (09:50→12:17)
[2021-06-17] MEDS: ONDANSETRON 4 MG/2 ML VIAL IVP PRN (09:54)
--- NOTE | 2021-06-17 10:02 | NUR ---
PHYSICAL THERAPY CO-SIGN The Physical Therapy Progress Notes documented by Derrick Man have been reviewed. Reviewed/Co-Signed by: Krystal Fleming Documentation Done by: VISHNU MCCORMACK PTA Addendum: 06/17/21 at 1002 by Krystal Fleming PT Amended: Links added.
[2021-06-17] MEDS ORDERED: HYDROcodone/APAP 5/325 MG 1 TAB TAB PO PRN (10:55)
--- NOTE | 2021-06-17 10:55 | NUR ---
PT C/O CHEST PAIN AND HEADACHE 01/17, DR CASIANO WITH NEW ORDER MADE.
[2021-06-17 12:00] VITALS: BP 125/69
[2021-06-17] MEDS: DEXT 5% /NACL 0.9% 1,000 ML IV SCH (12:17)
[2021-06-17 12:26] VITALS: BP 112/78
--- NOTE | 2021-06-17 12:37 | NUR ---
PT FOR DISCHARGE TODAY AT [facility], SOAKING PIT OPERATOR TIME 1600. CALLED DAUGHTER WAI AND MADE AWARE. PT AWARE.
[2021-06-17 13:37] LABS: PLATELET COUNT (AUTO) 43 K/uL (140-450)
--- NOTE | 2021-06-17 14:50 | NUR ---
CALLED [facility] AND SPOKE WITH ART TO GIVE REPORT. AWAITING SHEET MANUFACTURING SUPERVISOR FOR PT.
--- NOTE | 2021-06-17 15:03 | NUR ---
PT DISCHARGED TO [facility] PICKED UP BY [facility] VIA GURNEY WITH BELONGINGS AND PAPERWORKS. PT IN STABLE CONDITION
== END 2021-06-17 15:03 | DRG 242 ==
LOC: MED 20:00 → EDBD 23:44 → MIC 23:44 → EDUNIT# 23:44 → MIC 06-13 12:20 → MTU 06-16 07:05
PROVIDERS: ADMIT Hospitalist; ATTEND Hospitalist
PROC: 02HV33Z Insertion of Infusion Device into Superior Vena Cava, Percutaneous Approach (ICD-10-PCS; principal; 2021-06-12)
PROC: B548ZZA Ultrasonography of Superior Vena Cava, Guidance (ICD-10-PCS; 2021-06-12)
PROC: 30233N1 Transfusion of Nonautologous Red Blood Cells into Peripheral Vein, Percutaneous Approach (ICD-10-PCS; 2021-06-13)
PROC: 0DJ08ZZ Inspection of Upper Intestinal Tract, Via Natural or Artificial Opening Endoscopic (ICD-10-PCS; 2021-06-14)
PROC: 30233R1 Transfusion of Nonautologous Platelets into Peripheral Vein, Percutaneous Approach (ICD-10-PCS; 2021-06-14)
DX: I85.11 Secondary esophageal varices with bleeding (principal); E43 Unspecified severe protein-calorie malnutrition; D69.6 Thrombocytopenia, unspecified; K72.90 Hepatic failure, unspecified without coma; D63.8 Anemia in other chronic diseases classified elsewhere; E87.1 Hypo-osmolality and hyponatremia; K74.60 Unspecified cirrhosis of liver; E87.6 Hypokalemia; G40.909 Epilepsy, unspecified, not intractable, without status epilepticus; K20.90 Esophagitis, unspecified without bleeding; K31.89 Other diseases of stomach and duodenum; D50.0 Iron deficiency anemia secondary to blood loss (chronic); F10.139 Alcohol abuse with withdrawal, unspecified; Y90.9 Presence of alcohol in blood, level not specified; Z20.822 Contact with and (suspected) exposure to COVID-19; Z91.14 Patient's other noncompliance with medication regimen; Z91.19 Patient's noncompliance with other medical treatment and regimen; Z88.0 Allergy status to penicillin; Z79.899 Other long term (current) drug therapy; Z68.27 Body mass index [BMI] 27.0-27.9, adult
CPT/HCPCS: 36415; 36430; 36556; 70450; 71045; 80048; 80053; 80305; 82140; 83036; 83690; 83735; 84484; 85025; 85610; 85730; 86886; 86900; 86901; 86920; 87081; 96365; 96367; 96368; 96375; 97110; 97112; 97116; 97163-GP; 97530; 99291; A9153; C9113; G0480; G0482; J0696; J1953; J2001; J2060; J2250; J2270; J2354; J2405; J2765; J3010; J3411; J3475; J3480; J3490; J7030; P9016; P9035; Q0092